=== PATIENT | female | born 2000 | race Caucasian/White ===

== ENCOUNTER 2022-02-02 09:52 | Outpatient (CLI) | payer BC, MEDICAID, SELFPAY ==
[2022-02-02 10:09] LABS: Absolute Lymphocyte Count 2.03 X10^3/uL (0.83-4.51); Absolute Neutrophil Count 6.2 X10^3/uL (2.0-7.7); Basophil# 0.03 X10^3/uL; Basophil% 0.3 % (0-1); Eosinophil# 0.08 X10^3/uL; Eosinophils% 0.9 % (0-5); Hematocrit 38.9 % (37-47); Lymphocyte # 2.03 X10^3/ul (0.83-4.51); Mean Corp Hgb Conc 33.4 g/dL (32-36); Mean Corpuscular Hgb 32.9 pg (27.0-32.0); Mean Corpuscular Volume 98.5 fL (81-99); Mean Platelet Vol. 9.4 fl (6.2-12.0); Monocyte# 0.44 X10^3/uL; NRBC Flagged by Analyzer 0 % (0-5); Neutrophil # 6.19 X10^3/uL (2.7-7.7); Platelet Count 324 K/mm3 (150-450); RBC Distribution Width CV 12.6 % (11.6-14.6); RBC Distribution Width SD 45.9 fl (35.1-43.9); Red Blood Count 3.95 M/mm3 (4.2-5.4); White Blood Count 8.8 K/mm3 (4.4-11.0)
[2022-02-02 10:28] LABS: Glucose Challenge Gest 1H 50g 118 mg/dL (70-140)
== END 2022-02-02 23:59 | disposition home or self-care (01) ==
PROVIDERS: Nurse Practitioner Women's Health; Referring Provider Obstetrics & Gynecology; Visit Provider Obstetrics & Gynecology
DX: Z34.92 Encounter for supervision of normal pregnancy, unspecified, second trimester (principal); Z3A.26 26 weeks gestation of pregnancy
CPT/HCPCS: 36415; 82950; 85025

== ENCOUNTER 2022-03-09 10:00 | Outpatient (CLI) | payer BC, MEDICAID, SELFPAY ==
[2022-03-09 10:12] VITALS: BMI 18.5
[2022-03-09] MEDS: Betamethasone/Betamethasone 30 MG/5 ML Vial 12 MG IM (10:18)
--- NOTE | 2022-03-26 10:10 | OB.TRI.PN ---
Progress Notes Date of Service: 03/09/22 Progress Note: Aniceto Velázquez is a 21 y/o @ Assessment & Plan (1) IUGR (intrauterine growth restriction): COMMENT: pt has twice weekly ultrasounds with MFM. most recent ultrasound from 03/08 is pending with plan. -twice weekly testing and weekly UAD recommended. -celestone ordered 03/09 (2) Uterine size-date discrepancy, third trimester: COMMENT: growth US every 2 wks, 2x wkly BPPS and once wkly UAD. Deliver at 37 wks or sooner if indicated (3) Antepartum cervical shortening: COMMENT: 2.3-2.7 cm on anatomy scan- micronized progesterone 200 mg per vagina HS, lifting and pelvic rest restrictions 12/29 [id number], wkly screenings until 24 wks 01/04 CL nl. (4) Cardiac arrhythmia: COMMENT: in past as a child, never treated, unsure the name, no meds or symptoms. recommend EKG (5) : QUALIFIERS: Weeks of gestation: 34 weeks Qualified Code(s): Z3A.34 - 34 weeks gestation of COMMENT: nipt and carrier declined. JOSÉ ANTONIO [place]. anatomy Deliver 38-39 weeks (6) Supervision of normal : COMMENT: PRR(RPR) OLE 04/28/22 boy ritika Morel
--- NOTE | 2022-03-26 10:12 | OB.TRI.HP_ITS ---
HPI - General HPI Narrative JESICA AVILA, is a 21 F who presents to L&D for celestone injection for IUGR. Maternal Data Information OLE Calculator Estimated Delivery Date Method Current WG Current Estimate 04/28/22 Manual 35w 2d PFSH PFSH Home Medications docosahexaenoic acid 200 mg capsule 2 PO DAILY 11/17/21 [History Last Taken 03/10/22 08:00 2 gummies] progesterone micronized 100 mg vaginal insert 2 insert VAGINAL QHS 30 Days #60 ea 12/08/21 [Rx Last Taken 03/09/22 22:00 2 insert] famotidine 20 mg tablet 20 mg PO DAILY 12/16/21 [History Last Taken 03/10/22 07:00 20 mg] loperamide 2 mg capsule 2 mg PO Q6H PRN 02/24/22 [History Last Taken Unknown] ondansetron 4 mg disintegrating tablet 4 mg PO Q8H PRN 02/24/22 [History Last Taken 03/10/22 07:00 4 mg] docusate sodium 100 mg capsule 100 mg PO DAILY #30 cap 03/09/22 [Rx Last Taken 03/09/22 22:00 100 mg] polyethylene glycol 3350 17 gram/dose oral powder 4 g PO DAILY 30 Days #120 g 03/09/22 [Rx Last Taken 03/09/22 13:00 4 g] sertraline [Zoloft] 20 mg PO DAILY 03/10/22 [History Last Taken 03/10/22 08:00 25 mg] Allergy/AdvReac Type Severity Reaction Status Date / Time No Known Allergies Allergy Verified 03/23/22 11:53 Surgical History S/P eye surgery Social History Smoking Status: Former smoker alcohol intake: never substance use type: does not use caffeine: Yes what type of physical activity do you participate in: yoga and weight training frequency: 5-6 times per week seatbelt use: always do you feel safe at home: Yes additional social history: Fiance-Adriel History 1 Elective abortions Hx Para Spontaneous abortions Hx # Term Pregnancies Ectopic pregnancies Hx # Pregnancies Multiple births # of living children Visit Details Expected Delivery Route/Plan Labor Preferences- CB/BF classes: [] labor support person: [] labor intervention preferences: [] pain management options preferred: [] cut cord/dad catch: [] : [] PP control planned: [] discussed possible routes of delivery and associated risks: [] special requests: [] Plans Covid status: non immune counseled regarding risk of covid in vs vaccination and declined vaccination Flu vaccine: declined Tdap vaccine: given Rhogam: na LARC form signed: declined movement and labor precautions reviewed. Problem list reviewed and updated with the most current plan of care details and appropriate orders placed. Relevant counseling for the gestational age provided. Continue routine care and follow up unless otherwise noted in visit notes/problem list details OB Flowsheet Initial Weight: Not Recorded Date -?-?-?-?-?-?-?-?-?-?-?-?- EGA Weight BP Urine Prot -?-?-?-?-?-?-?-?-?-?-?-?- Glucose FHR FuHt Pres Dilation -?-?-?-?-?-?-?-?-?-?-?-?- Effaced St Visit Note 11/17/21 -?-?-?-?-?-?-?-?-?-?-?-?- 16w 6d 95 lb 120/88 Negative -?-?-?-?-?-?-?-?-?-?-?-?- Negative 145 -?-?-?-?-?-?-?-?-?-?-?-?- SM- JOSÉ ANTONIO isela harris. no vb cramping doing well 12/16/21 -?-?-?-?-?-?-?-?-?-?-?-?- 21w 0d 96 lb 122/84 Negative -?-?-?-?-?-?-?-?-?-?-?-?- Negative 140 -?-?-?-?-?-?-?-?-?-?-?-?- SM- no vb lof go od fm SM- no vb lof good fm discus sed shortened CL recommend repeat us next week 01/21/22 -?-?-?-?-?-?-?-?-?-?-?-?- 26w 1d 99 lb 4 oz 112/64 -?-?-?--?-?-?-?-?-?-?-?-?- 145 25 -?-?-?-?-?-?-?-?-?-?-?-?- SM- no vb lof go od fm no regular ctx CL stable on progesterone 02/10/22 -?-?-?-?-?-?-?-?-?-?-?-?- 29w 0d 103 lb 8 oz 124/70 Nega tive -?-?-?-?-?-?-?-?-?-?-?-?- Negative 165 27 -?-?-?-?-?-?-?-?-?-?-?-?- JV- stable Short ened cervix. pt was at [facility] and states was put on 5 different medications to help with hyperemesis episode. She will bring in list next visit 02/24/22 -?-?-?-?-?-?-?-?-?-?-?-?- 31w 0d 101 lb 6 oz 108/72 Nega tive -?-?-?-?-?-?-?-?-?-?-?-?- Negative 145 28 -?-?-?-?-?-?-?-?-?-?-?-?- SM- tdap booster today, larc signed no vb lof good fm no regular ctx. 03/09/22 -?-?-?-?-?-?-?-?-?-?-?-?- 32w 6d 103 lb 114/72 Negative -?-?-?-?-?-?-?-?-?-?-?-?- Negative 130 28 -?-?-?-?-?-?-?-?--?-?-?-?- JV- nst reactive . celestone ordered for IUGR. pt is supposed to be getting twice weekly testing and once weekly UAD. waiting on report from [facility]. in meantime will give celestone 03/09/22 -?-?-?-?-?-?-?-?-?-?-?-?- 32w 6d 101 lb 6.602 oz -?-?-?-?-?-?-?-?-?-?-?-?- -?-?-?-?-?-?-?-?-?-?-?-?- 03/23/22 -?-?-?-?-?-?-?-?-?-?-?-?- 34w 6d 101 lb 4 oz 110/68 Nega tive -?-?-?-?-?-?-?-?-?-?-?-?- Negative 140 30 -?-?-?-?-?-?-?-?-?-?-?-?- JV- plan for gricel corderoy UAD, q 2 week growths, and twice weekly nsts. NST today reactive. Assessment & Plan (1) IUGR (intrauterine growth restriction): COMMENT: pt has twice weekly ultrasounds with MFM. most recent ultrasound from 03/08 is pending with plan. -twice weekly testing and weekly UAD recommended. -celestone ordered 03/09 (2) Uterine size-date discrepancy, third trimester: COMMENT: growth US every 2 wks, 2x wkly BPPS and once wkly UAD. Deliver at 37 wks or sooner if indicated (3) Antepartum cervical shortening: COMMENT: 2.3-2.7 cm on anatomy scan- micronized progesterone 200 mg per vagina HS, lifting and pelvic rest restrictions 12/29 [id number], wkly screenings until 24 wks 01/04 CL nl. (4) Cardiac arrhythmia: COMMENT: in past as a child, never treated, unsure the name, no meds or symptoms. recommend EKG (5) : QUALIFIERS: Weeks of gestation: 34 weeks Qualified Code(s): Z3A.34 - 34 weeks gestation of COMMENT: nipt and carrier declined. JOSÉ ANTONIO [place]. anatomy Deliver 38- 39 weeks (6) Supervision of normal : COMMENT: PRR(RPR) OLE 04/28/22 boy ritika Adriel PLAN: celestone injection today and tomorrow.
== END 2022-03-09 10:22 | disposition home or self-care (01) ==
LOC: WPOUT 10:02 → WP 10:03
PROVIDERS: Referring Provider Obstetrics & Gynecology; Visit Provider Obstetrics & Gynecology
DX: O36.5930 Maternal care for other known or suspected poor fetal growth, third trimester, not applicable or unspecified (principal); Z00.00 Encounter for general adult medical examination without abnormal findings; O26.843 Uterine size-date discrepancy, third trimester; O26.873 Cervical shortening, third trimester; Z3A.34 34 weeks gestation of pregnancy; Z87.891 Personal history of nicotine dependence
CPT/HCPCS: 96372; 99218; G0378; J0702

== ENCOUNTER 2022-03-10 10:45 | Outpatient (CLI) | payer BC, MEDICAID, SELFPAY ==
[2022-03-10 10:50] VITALS: BMI 18.6
[2022-03-10] MEDS: Betamethasone/Betamethasone 30 MG/5 ML Vial 12 MG IM (11:31)
--- NOTE | 2022-03-26 10:14 | OB.TRI.PN_ITS ---
Progress Notes Date of Service: 03/10/22 Progress Note: pt presents today for repeat celestone injection due to IUGR. Her first dose was yesterday Assessment & Plan (1) IUGR (intrauterine growth restriction): COMMENT: pt has twice weekly ultrasounds with MFM. most recent ultrasound from 03/08 is pending with plan. -twice weekly testing and weekly UAD recommended. -celestone ordered 03/09 (2) Uterine size-date discrepancy, third trimester: COMMENT: growth US every 2 wks, 2x wkly BPPS and once wkly UAD. Deliver at 37 wks or sooner if indicated (3) Antepartum cervical shortening: COMMENT: 2.3-2.7 cm on anatomy scan- micronized progesterone 200 mg per vagina HS, lifting and pelvic rest restrictions 12/29 [id number], wkly screenings until 24 wks 01/04 CL nl. (4) Cardiac arrhythmia: COMMENT: in past as a child, never treated, unsure the name, no meds or symptoms. recommend EKG (5) : QUALIFIERS: Weeks of gestation: 34 weeks Qualified Code(s): Z3A.34 - 34 weeks gestation of COMMENT: nipt and carrier declined. JOSÉ ANTONIO [place]. nl anatomy Deliver 38- 39 weeks (6) Supervision of normal : COMMENT: PRR(RPR) OLE 04/28/22 osmany Morel PLAN: 2nd celestone injection today. keep office vitis and plan for monitoring
== END 2022-03-10 11:34 | disposition home or self-care (01) ==
LOC: WPOUT 10:46 → WP 10:47
PROVIDERS: Visit Provider Obstetrics & Gynecology
DX: O36.5930 Maternal care for other known or suspected poor fetal growth, third trimester, not applicable or unspecified (principal); O99.413 Diseases of the circulatory system complicating pregnancy, third trimester; O26.843 Uterine size-date discrepancy, third trimester; O26.873 Cervical shortening, third trimester; I49.9 Cardiac arrhythmia, unspecified; Z3A.34 34 weeks gestation of pregnancy
CPT/HCPCS: 96372; 99218; G0378; J0702

== ENCOUNTER → 2022-03-30 | Outpatient (CLI) | payer BC, MEDICAID, SELFPAY | END | disposition home or self-care (01) | LOC: LABSPEC 04-08 05:06 | PROVIDERS: Visit Provider Obstetrics & Gynecology | DX: Z34.90 Encounter for supervision of normal pregnancy, unspecified, unspecified trimester (principal) | CPT/HCPCS: 87081 ==

== ENCOUNTER 2022-04-07 07:05 | Inpatient (IN) | payer BC, MEDICAID, SELFPAY ==
[2022-04-07] VITALS (32 sets, daily range): BP systolic 121–150; BP diastolic 67–90; PULSE 74–116; RESP 16; TEMP 36.6–37.6; O2SAT 99–100; BMI 18.4
[2022-04-07] MEDS: Lactated Ringers 1,000 ML 50 ML IV (07:35)
[2022-04-07 07:51] LABS: Absolute Lymphocyte Count 2.66 X10^3/uL (0.83-4.51); Basophil# 0.02 X10^3/uL; Basophil% 0.2 % (0-1); Eosinophil# 0.05 X10^3/uL; Eosinophils% 0.6 % (0-5); Hematocrit 33.9 % (37-47); Hemoglobin 11.4 g/dL (12.0-15.0); Lymphocyte # 2.66 X10^3/ul (0.83-4.51); Lymphocyte % 31.8 % (19-41); Mean Corp Hgb Conc 33.6 g/dL (32-36); Mean Corpuscular Hgb 31.7 pg (27.0-32.0); Mean Corpuscular Volume 94.2 fL (81-99); Monocyte# 0.58 X10^3/uL; Monocyte% 6.9 % (0-10); NRBC Flagged by Analyzer 0 % (0-5); Neutrophil % 59.9 % (47-70); Platelet Count 382 K/mm3 (150-450); RBC Distribution Width CV 13.1 % (11.6-14.6); RBC Distribution Width SD 44.7 fl (35.1-43.9); White Blood Count 8.4 K/mm3 (4.4-11.0)
[2022-04-07] MEDS: 0.9% Normal Saline Single 100 ML IV.SOLN. INTRA-UTER (08:25)
[2022-04-07] MEDS: Oxytocin 30 units/NS 500 ml 30 UNITS/500 ML IV.SOLN IV (09:14)
[2022-04-07] MEDS: Lactated Ringers 500 ML 999 ML IV (11:50)
[2022-04-07] MEDS: fentaNYL-bupivacaine (epidural) 100 ML BAG EPIDURAL (12:50)
--- NOTE | 2022-04-07 12:51 | HP.PCM.OB_ITS ---
HPI - General General Date of Admission: 04/07/22 HPI Narrative JESICA AVILA, is a 21 F who presentsfor IOL secondary to IUGR no vb lof good fm no regular ctx Maternal Data Information OLE Calculator Estimated Delivery Date Method Current WG Current Estimate 04/28/22 Manual 37w 0d PFSH PFSH Home Medications docosahexaenoic acid 200 mg capsule 2 mg PO DAILY 11/17/21 [History Last Taken 04/06/22] famotidine 20 mg tablet 20 mg PO DAILY 12/16/21 [History Last Taken 04/06/22] loperamide 2 mg capsule 2 mg PO Q6H PRN 02/24/22 [History Last Taken 2 Weeks Ago ~03/24/22] ondansetron 4 mg disintegrating tablet 4 mg PO Q8H PRN 02/24/22 [History Last Taken 2 Weeks Ago ~03/24/22] sertraline [Zoloft] 25 mg PO DAILY 03/10/22 [History Last Taken 04/07/22] docusate sodium [Colace] 100 mg PO DAILY 04/07/22 [History Last Taken 2 Weeks Ago ~03/24/22] polyethylene glycol 3350 [Miralax] 4 g PO DAILY 04/07/22 [History Last Taken Unknown] progesterone micronized 2 insert VAGINAL QHS 04/07/22 [History Last Taken 2 Weeks Ago ~03/24/22] Allergy/AdvReac Type Severity Reaction Status Date / Time No Known Allergies Allergy Verified 03/30/22 11:06 Surgical History S/P eye surgery Social History Smoking Status: Former smoker alcohol intake: never substance use type: does not use caffeine: Yes what type of physical activity do you participate in: yoga and weight training frequency: 5-6 times per week seatbelt use: always do you feel safe at home: Yes additional social history: Angelique History 1 Elective abortions Hx Para 0 Spontaneous abortions Hx # Term Pregnancies Ectopic pregnancies Hx # Pregnancies Multiple births # of living children Visit Details Expected Delivery Route/Plan Labor Preferences- CB/BF classes: [] labor support person: [] labor intervention preferences: [] pain management options preferred: [] cut cord/dad catch: [] : [] PP control planned: [] discussed possible routes of delivery and associated risks: [] special requests: [] Plans Covid status: non immune counseled regarding risk of covid in vs vaccination and declined vaccination Flu vaccine: declined Tdap vaccine: given Rhogam: na LARC form signed: declined movement and labor precautions reviewed. Problem list reviewed and updated with the most current plan of care details and appropriate orders placed. Relevant counseling for the gestational age provided. Continue routine care and follow up unless otherwise noted in visit notes/problem list details OB Flowsheet Initial Weight: Not Recorded Date -?-?-?-?-?-?-?-?-?-?-?-?- EGA Weight BP Urine Prot -?-?-?-?-?-?-?-?-?-?-?-?- Glucose FHR FuHt Pres Dilation -?-?-?-?-?-?-?-?-?-?-?-?- Effaced St Visit Note 11/17/21 -?-?-?-?-?-?-?-?-?-?-?-?- 16w 6d 95 lb 120/88 Negative -?-?-?-?-?-?-?-?-?-?-?-?- Negative 145 -?-?-?-?-?-?-?-?-?-?-?-?- SM- JOSÉ ANTONIO isela d. no vb cramping doing well 12/16/21 -?-?-?-?-?-?-?-?-?-?-?-?- 21w 0d 96 lb 122/84 Negative -?-?-?-?-?-?-?-?-?-?-?-?- Negative 140 -?-?-?-?-?-?-?-?-?-?-?-?- SM- no vb lof go od fm SM- no vb lof good fm discus sed shortened CL recommend repeat us next week 01/21/22 -?-?-?-?-?-?-?-?-?-?-?-?- 26w 1d 99 lb 4 oz 112/64 -?-?--?-?-?-?-?-?-?-?-?-?- 145 25 -?-?-?-?-?-?-?-?-?-?-?-?- SM- no vb lof go od fm no regular ctx CL stable on progesterone 02/10/22 -?-?-?-?-?-?-?-?-?-?-?-?- 29w 0d 103 lb 8 oz 124/70 Nega tive -?-?-?-?-?-?-?-?-?-?-?-?- Negative 165 27 -?-?-?-?-?-?-?-?-?-?-?-?- JV- stable Short ened cervix. pt was at [facility] and states was put on 5 different medications to help with hyperemesis episode. She will bring in list next visit 02/24/22 -?-?-?-?-?-?-?-?-?-?-?-?- 31w 0d 101 lb 6 oz 108/72 Nega tive -?-?-?-?-?-?-?-?-?-?-?-?- Negative 145 28 -?-?-?-?-?-?-?-?-?-?-?-?- SM- tdap booster today, larc signed no vb lof good fm no regular ctx. 03/09/22 -?-?-?-?-?-?-?-?-?-?-?-?- 32w 6d 103 lb 114/72 Negative -?-?-?-?-?-?-?-?-?-?-?-?- Negative 130 28 -?-?-?-?-?-?-?--?-?-?-?-?- JV- nst reactive . celestone ordered for IUGR. pt is supposed to be getting twice weekly testing and once weekly UAD. waiting on report from [facility]. in meantime will give celestone 03/09/22 -?-?-?-?-?-?-?-?-?-?-?-?- 32w 6d 101 lb 6.602 oz -?-?-?-?-?-?-?-?-?-?-?-?- -?-?-?-?-?-?-?-?-?-?-?-?- 03/23/22 -?-?-?-?-?-?-?-?-?-?-?-?- 34w 6d 101 lb 4 oz 110/68 Nega tive -?-?-?-?-?-?-?-?-?-?-?-?- Negative 140 30 -?-?-?-?-?-?-?-?-?-?-?-?- JV- plan for gricel kly UAD, q 2 week growths, and twice weekly nsts. NST today reactive. 03/30/22 -?-?-?-?-?-?-?-?-?-?-?-?- 35w 6d 102 lb 4 oz 130/82 Nega tive -?--?-?-?-?-?-?-?-?-?-?-?- Negative 155 29 Cephalic 1 -?-?-?-?-?-?-?-?-?-?-?-?- 70 -2 JV- BPP ye sterday was 06/13 and growth showed slight interval growth now 1st%. IOL set up at 37 weeks ( am) cx is very soft and anterior. good candidate for pit and possiblly ed. paula score 8 04/07/22 -?-?-?-?-?-?-?-?-?-?-?-?- 37w 0d 101 lb 131/78 125/75 132/77 135/86 150/75 149/78 131/75 132/81 136/74 132/72 130/74 -?-?-?-?-?-?-?-?-?-?-?-?- -?-?-?-?-?-?-?-?-?-?-?-?- NST FHR Rate Baby A Baseline: 130 Variability:: Moderate Accelerations:: 15 x 15 Decelerations:: None NST Reactive:: Yes FHR Category:: Category I Uterine Activity:: irregular ROS Constitutional Constitutional: Reports systems reviewed and no addt'l complaints, except as documented Eyes Eyes: Denies change in vision ENT HEENT: Reports systems reviewed and no addt'l complaints, except as documented; Denies headache(s) Cardiovascular Cardiovascular: Reports systems reviewed and no addt'l complaints, except as documented; Denies chest pain or dyspnea Respiratory/Chest Respiratory/Chest: Reports systems reviewed and no addt'l complaints, except as documented Gastrointestinal Gastrointestinal: Reports systems reviewed and no addt'l complaints, except as documented; Denies abdominal pain Genitourinary Genitourinary: Reports systems reviewed and no addt'l complaints, except as documented, contractions Details: present (irregular) and movement Details: present; Denies dysuria or genital lesions Musculoskeletal Musculoskeletal: Reports systems reviewed and no addt'l complaints, except as documented Neurologic Neurologic: Reports systems reviewed and no addt'l complaints, except as documented Endocrine Endocrinology: Reports systems reviewed and no addt'l complaints, except as documented Vital Signs Vital Signs Vital Signs: 04/07/22 07:46 04/07/22 07:47 04/07/22 09:18 Temperature 98.8 F 98.4 F Pulse Rate 84 Blood Pressure 131/78 H BP Systolic 131 BP Diastolic 78 Pulse Ox 100 04/07/22 09:19 04/07/22 10:53 04/07/22 11:59 Temperature Pulse Rate 80 83 77 Blood Pressure 125/75 H 132/77 H 135/86 H BP Systolic 125 132 135 BP Diastolic 75 77 86 Pulse Ox 04/07/22 12:26 04/07/22 12:31 04/07/22 12:36 Temperature Pulse Rate 93 100 96 Blood Pressure 150/75 H 149/78 H 131/75 H BP Systolic 150 149 131 BP Diastolic 75 78 75 Pulse Ox 04/07/22 12:39 04/07/22 12:41 04/07/22 12:46 Temperature Pulse Rate 91 81 89 Blood Pressure 132/81 H 136/74 H 132/72 H BP Systolic 132 136 132 BP Diastolic 81 74 72 Pulse Ox 100 04/07/22 12:51 Temperature Pulse Rate 88 Blood Pressure 130/74 H BP Systolic 130 BP Diastolic 74 Pulse Ox Weight Weight: 101 lb Body Mass Index (BMI) 18.4 Physical Exam Const alert, oriented x3, no apparent distress and healthy appearing HEENT normocephalic and moist oral mucous membranes Head and Scalp: atraumatic Neck full ROM, no lymphadenopathy, supple and thyroid normal General: trachea midline Lymph Lymphatic: no lymphadenopathy noted Chest inspection of chest normal Resp normal respiratory effort Cardio regular rate GI normal to inspection, nondistended, normoactive bowel sounds, soft to palpation and non-tender Inspection: gravid external exam normal Manual OB Exam: estimated gestational size appropriate, presentation cephalic, dilated, effaced and station Extremity normal to inspection General Extremity: Negative for edema Skin no rashes or lesions noted Neuro no focal motor deficits and deep tendon reflexes 2+ bilaterally Motor Exam: strength 5/5 throughout and clonus absent Psych mental status grossly normal Labs Labs Labs: Blood Type A POSITIVE Antibody Screen NEGATIVE Hct 33.9 % (37-47) L Hgb 11.4 g/dL (12.0-15.0) L Pap Smear Positive Hep Bs Antigen Pending Glucose 1 Hr 50 gm 118 mg/dL (70-140) Assessment & Plan (1) Supervision of normal : COMMENT: PRR(RPR) OLE 04/28/22 boy ritika Morel (2) : QUALIFIERS: Weeks of gestation: 34 weeks Qualified Code(s): Z3A.34 - 34 weeks gestation of COMMENT: nipt and carrier declined. JOSÉ ANTONIO [place]. nl anatomy Deliver 38- 39 weeks. GBS Neg (3) Cardiac arrhythmia: COMMENT: in past as a child, never treated, unsure the name, no meds or symptoms. recommend EKG (4) Antepartum cervical shortening: COMMENT: 2.3-2.7 cm on anatomy scan- micronized progesterone 200 mg per vagina HS, lifting and pelvic rest restrictions 12/29 [id number].mm, wkly screenings until 24 wks 01/04 CL nl. (5) Uterine size-date discrepancy, third trimester: COMMENT: growth US every 2 wks, 2x wkly BPPS and once wkly UAD. Deliver at 37 wks or sooner if indicated (6) IUGR (intrauterine growth restriction): COMMENT: pt has twice weekly ultrasounds with MFM. most recent ultrasound from 03/08 is pending with plan. -twice weekly testing and weekly UAD recommended. -celestone ordered 03/09 PLAN: Patient presents IOL, plan management for with pitocin/AROM. fb Pain management: plans epidural. GBS negative. Management of any complications: iugr I have reviewed the [facility] and made any clinically relevant updates.
[2022-04-07 13:31] LABS: Hepatitis B Surface Antigen Non-Reactive (Nonreactive); Hepatitis C Antibody Non-Reactive (Nonreactive)
[2022-04-07] MEDS: Lactated Ringers 1,000 ML 200 ML IV (13:55)
--- NOTE | 2022-04-07 17:22 | EX.PCM.OBRPT ---
Assessment & Plan (1) IUGR (intrauterine growth restriction): COMMENT: pt has twice weekly ultrasounds with MFM. most recent ultrasound from 03/08 is pending with plan. -twice weekly testing and weekly UAD recommended. -celestone ordered 03/09 (2) Antepartum cervical shortening: COMMENT: 2.3-2.7 cm on anatomy scan- micronized progesterone 200 mg per vagina HS, lifting and pelvic rest restrictions 12/29 .mm, wkly screenings until 24 wks 01/04 CL nl. (3) Cardiac arrhythmia: COMMENT: in past as a child, never treated, unsure the name, no meds or symptoms. recommend EKG (4) : QUALIFIERS: Weeks of gestation: 34 weeks Qualified Code(s): Z3A.34 - 34 weeks gestation of COMMENT: nipt and carrier declined. JOSÉ ANTONIO [place]. nl anatomy Deliver 38-39 weeks. GBS Neg (5) Supervision of normal : COMMENT: PRR(RPR) OLE 04/28/22 boy ritika Morel (6) Vaginal delivery: COMMENT: IOL IUGR SM 37 Maternal Data Information OLE Calculator Estimated Delivery Date Method Current WG Current Estimate 04/28/22 Manual 37w 0d Vaginal Delivery Operative Information Date of Procedure: 04/07/22 Pre-Operative Diagnosis: IOL IUGR Post-Operative Diagnosis: same Surgery / Procedure Performed: Spontaneous Vaginal Delivery Type of Anesthesia: Epidural Special Medications: none Estimated Blood Loss: 100 Fluids Replaced: crystalloid Findings Description of Procedure: Patient began pushing and delivered the head in the NADIYA presentation. The head was delivered atraumatically and a loose nuchal cord ?1 was identified and the delivered through without complication. The anterior and posterior shoulders delivered without complication followed by the rest of the infant and the was placed on the maternal abdomen. Delayed cord clamping was employed for approximately 60 seconds. Cord was clamped and cut and gentle traction was applied to the cord and the placenta delivered spontaneously immediately following it was noted to be intact with three-vessel cord. The perineum and vagina were inspected and noted to have no laceration. EBL was 100 cc. Patient and infant tolerated delivery well. Presentation: NADIYA Amniotic Membrane Rupture Type: Artificial Amniotic Fluid Description: Clear Placental Delivery Description: Spontaneous Placenta Disposition: [facility] Cord Vessel Description: 3 Vessels Cord Entanglement: Around neck x 1, loose Delayed Cord Clamping: Yes Post Vaginal Delivery Medications Given After Delivery: IV Pitocin Episiotomy Description: None Laceration: None Complication Complications: None Procedures Urinary/Genital [id number]: [id number] Vaginal Delivery [facility]
--- NOTE | 2022-04-07 17:23 | PCM.DC ---
Discharge Instructions Diet Discharge Diet: No restrictions Activity Discharge Activity: Return to Normal Activity, May Not Drive (while taking narcotic pain medications.) and May Shower May resume sexual activity in: 4-6 weeks Dressing / Incision Call your doctor if your incision/area has: Continuous Slow Oozing, Sudden Increased Bleeding, Increased Pain/ Swelling, Increased Redness and Foul Smelling Discharge Follow Up Care Please Follow Up With: Jess Arboleda MD When: Call [phone] to make an appointment with your doctor in 6 weeks. If you had elevated blood pressure or 4th degree laceration, you will need to be seen in 2 weeks. Test Results: Test results from this visit will be discussed in further detail at your follow-up appointment, if applicable. Discharge Plan Admission Admit Date/Time: 04/07/22 07:05 Attending Provider: Risa Leon Primary Care Provider: Panda PhysicianSalud Primary Discharge Orders/Prescriptions Prescriptions: No Action DHA 200 mg capsule 2 mg PO DAILY RF: 0 famotidine [Pepcid] 20 mg tablet 20 mg PO DAILY RF: 0 loperamide [Anti-Diarrheal (loperamide)] 2 mg capsule 2 mg PO Q6H PRN (Reason: Diarrhea) RF: 0 ondansetron 4 mg tablet,disintegrating 4 mg PO Q8H PRN (Reason: Nausea) RF: 0 sertraline [Zoloft] 20 mg/mL Concentrate 25 mg PO DAILY RF: 0 docusate sodium [Colace] 100 mg capsule 100 mg PO DAILY RF: 0 polyethylene glycol 3350 [Miralax] 17 gram/dose powder 4 g PO DAILY RF: 0 progesterone micronized 100 mg insert 2 insert vaginal QHS RF: 0 Referrals / Follow Up: Care Physician,No Primary [Primary Care Provider] - Disposition Disposition (needs filled in before D/C Order can be placed): Home, Self Care
[2022-04-07] MEDS: Oxytocin 30 units/NS 500 ml 30 UNITS/500 ML IV.SOLN 334 UNITS IV (18:34)
[2022-04-07] MEDS: 0.9% Saline Lock 10 ML Syringe IV (21:57)
[2022-04-07] MEDS: Acetaminophen 500 MG Tablet 1000 MG PO (23:48)
[2022-04-08 04:25] VITALS: BP 111/77; PULSE 90; RESP 18; TEMP 36.9; O2SAT 100
--- NOTE | 2022-04-08 04:51 | PN.OBGYN_ITS ---
Subjective Subjective Patient doing well without complaints. Tolerating PO. Ambulating and voiding without difficulty. feeding well. Denies chest pain, shortness of breath, calf pain/swelling, fevers, chills, lightheadedness. Objective Data Objective Data Vital Signs: Vital Signs Temp Pulse Resp BP Pulse Ox 98.4 F 90 18 111/77 100 04/08/22 04:25 04/08/22 04:25 04/08/22 04:25 04/08/22 04:25 04/08/22 04:25 Oxygen Delivery Method Room Air Weight: 101 lb Body Mass Index (BMI) 18.4 Intake & Output: Intake and Output for Last 24 Hours 04/06/22 04/07/22 04/08/22 23:59 23:59 23:59 Intake Total 2840.97 / 2840.97 Output Total 150 / 150 Balance 2840.97 / 2840.97 -150 / -150 Lab / Micro Data Result Diagrams: 04/07/22 07:35 Labs: Laboratory Results - last 24 hr 04/07/22 07:35: WBC 8.4, RBC 3.60 L, Hgb 11.4 L, Hct 33.9 L, MCV 94.2, MCH 31.7, MCHC 33.6, RDW Std Deviation 44.7 H, RDW Coeff of Mitali 13.1, Plt Count 382, MPV 9.0, Immature Gran % (Auto) 0.600, Neut % (Auto) 59.9, Lymph % (Auto) 31.8, [place] % (Auto) 6.9, Eos % (Auto) 0.6, Baso % (Auto) 0.2, Absolute Neuts (auto) 5.0, Absolute Lymphs (auto) 2.66, Nucleated RBC % 0 04/07/22 07:35: Blood Type A POSITIVE, Antibody Screen NEGATIVE 04/07/22 10:55: Hep Bs Antigen Non-Reactive, Hepatitis C Antibody Non-Reactive Micro: Microbiology 04/07/22 07:40 Nasal Secretion SARS-CoV-2 Antigen (Rapid) - Final ROS Constitutional Constitutional: Reports systems reviewed and no addt'l complaints, except as documented Cardiovascular Cardiovascular: Reports systems reviewed and no addt'l complaints, except as do cumented Respiratory/Chest Respiratory/Chest: Reports systems reviewed and no addt'l complaints, except as documented Gastrointestinal Gastrointestinal: Reports systems reviewed and no addt'l complaints, except as documented Physical Exam Const alert, oriented x3 and no apparent distress HEENT Head and Scalp: atraumatic Resp normal respiratory effort GI soft to palpation and non-tender Bimanual Exam - Vag & Uterus: uterus non-tender Uterus Palpation: uterus fundus firm (below Umbilicus) Assessment & Plan (1) Vaginal delivery: COMMENT: IOL IUGR SM 37 PLAN: s/p PPD # 1 1. routine post delivery care 2. breast feeding- support given 3. rh positive 4. rubella immune
[2022-04-08 08:15] VITALS: BP 120/77; PULSE 75; RESP 16; TEMP 37.1; O2SAT 99
[2022-04-08] MEDS: Sertraline 50 MG Tablet 25 MG PO (10:11)
[2022-04-08 11:41] VITALS: BP 117/84; PULSE 93; RESP 16; TEMP 36.6; O2SAT 97
[2022-04-08] MEDS: Naproxen 500 MG Tablet PO (11:43)
[2022-04-08 16:23] VITALS: BP 123/81; PULSE 65; RESP 16; TEMP 37.1; O2SAT 98
[2022-04-08 20:00] VITALS: BP 121/77; PULSE 77; RESP 18; TEMP 37.1; O2SAT 98
[2022-04-09 03:05] VITALS: BP 126/83; PULSE 79; RESP 16; TEMP 36.7; O2SAT 99
[2022-04-09 08:35] VITALS: BP 122/74; PULSE 66; RESP 16; TEMP 37.1
--- NOTE | 2022-04-09 09:50 | PCM.PN.OB ---
Subjective Subjective Patient doing well without complaints. Tolerating PO. Ambulating and voiding without difficulty. Feeding well. Denies chest pain, shortness of breath, calf pain/swelling, fevers, chills, lightheadedness. Objective Data Objective Data Vital Signs: Vital Signs Temp Pulse Resp BP Pulse Ox 98.7 F 66 16 122/74 H 99 04/09/22 08:35 04/09/22 08:35 04/09/22 08:35 04/09/22 08:35 04/09/22 03:05 Oxygen Delivery Method Room Air Weight: 101 lb Body Mass Index (BMI) 18.4 Intake & Output: Intake and Output for Last 24 Hours 04/07/22 04/08/22 04/09/22 23:59 23:59 23:59 Intake Total 2840.97 / 2840.97 Output Total 400 / 400 Balance 2840.97 / 2840.97 -400 / -400 Lab / Micro Data Result Diagrams: 04/07/22 07:35 Micro: Microbiology 04/07/22 07:40 Nasal Secretion SARS-CoV-2 Antigen (Rapid) - Final ROS Constitutional Constitutional: Denies chills, fatigue, fever(s), poor appetite or weakness Eyes Eyes: Denies blurry vision, change in vision, seeing flashes or spots in vision ENT HEENT: Denies dizziness, headache(s), loss taste/smell or sore throat Cardiovascular Cardiovascular: Denies chest pain, dizziness, dyspnea, irregular heart rhythm, palpitations or rapid heart rate Respiratory/Chest Respiratory/Chest: Denies chest tightness, cough, dyspnea or breast pain Gastrointestinal Gastrointestinal: Denies abdominal pain, constipation or vomiting Genitourinary Genitourinary: Denies dysuria or flank pain Musculoskeletal Musculoskeletal: Denies difficulty walking, joint pain, limited range of motion or numbness Neurologic Neurologic: Denies abnormal movements, abnormal speech, dizziness, numbness, seizure-like activity or syncope Psychiatric Psychiatric: Denies anxiety, behavioral changes, change in appetite, confusion, depression or suicidal thoughts Physical Exam Const alert, oriented x3 and no apparent distress General Appearance: cooperative and comfortable Resp normal respiratory effort Cardio regular rate GI normal to inspection, nondistended, normoactive bowel sounds GI Narrative: uterus is firm below umbilicus Palpation: soft Bimanual Exam - Adnexa, Other: Negative for cul-de-sac fullness Back/Spine no CVA tenderness and thoraco-lumbar ROM normal Extremity normal to inspection, no clubbing, cyanosis or edema, no calf tenderness and no pedal edema Psych mental status grossly normal, thought process normal, cooperative, affect normal, speech normal, activity/motor behavior normal, denies homicidal ideation and denies suicidal ideation Assessment & Plan (1) Vaginal delivery: COMMENT: IOL IUGR SM 37 PLAN: s/p PPD # 1 1. routine post delivery care 2. breast feeding- support given 3. rh positive 4. rubella immune 5. pt wants to go home today
[2022-04-09] MEDS: Sertraline 50 MG Tablet 25 MG PO (10:38)
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
== END 2022-04-09 12:20 | disposition home or self-care (01) | DRG 806 ==
PROVIDERS: Obstetrics & Gynecology; Admitting Provider Obstetrics & Gynecology; Referring Provider Obstetrics & Gynecology; Visit Provider Obstetrics & Gynecology
DX: O36.5930 Maternal care for other known or suspected poor fetal growth, third trimester, not applicable or unspecified (principal); Z37.0 Single live birth; O26.873 Cervical shortening, third trimester; Z3A.37 37 weeks gestation of pregnancy; O69.81X0 Labor and delivery complicated by cord around neck, without compression, not applicable or unspecified; O26.843 Uterine size-date discrepancy, third trimester; Z87.891 Personal history of nicotine dependence
CPT/HCPCS: 59025; 59050; 85025; 86803; 86850; 86900; 86901; 87340; 87426; 99218; J7120; A4216; G0378

== ENCOUNTER → 2022-05-20 | Outpatient (CLI) | payer BC, MEDICAID, SELFPAY ==
[2022-05-24 14:04] LABS: HPV Reflexed? NOT INDICATED
== END | disposition home or self-care (01) ==
PROVIDERS: Visit Provider Obstetrics & Gynecology
DX: Z12.4 Encounter for screening for malignant neoplasm of cervix (principal)
CPT/HCPCS: 88175; G0145

== ENCOUNTER → 2024-11-22 | Outpatient (CLI) | payer MEDICAID, SELFPAY ==
[2024-11-22 10:08] LABS: Absolute Lymphocyte Count 2.89 X10^3/uL (0.83-4.51); Basophil# 0.02 X10^3/uL; Basophil% 0.2 % (0-1); Eosinophil# 0.06 X10^3/uL; Eosinophils% 0.6 % (0-5); Hematocrit 39.7 % (37-47); Hemoglobin 13.3 g/dL (12.0-15.0); Lymphocyte # 2.89 X10^3/ul (0.83-4.51); Lymphocyte % 27.8 % (19-41); Mean Corp Hgb Conc 33.5 g/dL (32-36); Mean Corpuscular Hgb 32.9 pg (27.0-32.0); Mean Corpuscular Volume 98.3 fL (81-99); Mean Platelet Vol. 9.5 fl (6.2-12.0); Monocyte# 0.37 X10^3/uL; Monocyte% 3.6 % (0-10); NRBC Flagged by Analyzer 0 % (0-5); Neutrophil # 7.01 X10^3/uL (2.7-7.7); Neutrophil % 67.2 % (47-70); Platelet Count 327 K/mm3 (150-450); RBC Distribution Width CV 12.5 % (11.6-14.6); Red Blood Count 4.04 M/mm3 (4.2-5.4); White Blood Count 10.4 K/mm3 (4.4-11.0)
[2024-11-22 10:27] LABS: AST(SGOT) 9 U/L (15-37); Alanine Aminotransfer ALT/SGPT 15 U/L (13-56); Albumin, Serum 3.7 g/dL (3.2-5.0); Alkaline Phosphatase 67 U/L (45-117); Anion Gap 8 (5-15); BUN 6 mg/dL (7-18); BUN/Creat Ratio 8.2 RATIO (10-20); Calcium,Total 9.2 mg/dL (8.5-10.1); Chloride 106 mmol/L (98-107); Creatinine, Serum 0.73 mg/dL (0.55-1.02); EST Glomerular Filtration Rate 103 mL/min (>60); Est Glom Filt Rate - Afr Amer 125 mL/min (>60); Globulin 3.7 g/dL (2.2-4.2); Glucose 77 mg/dL (74-106); Potassium 3.2 mmol/L (3.5-5.1); Protein, Total 7.4 g/dL (6.4-8.2); Sodium Level 139 mmol/L (136-145)
[2024-11-22 10:55] LABS: HIV - WCH Non-Reactive (Nonreactive); Hepatitis B Surface Antigen Non-Reactive (Nonreactive); Hepatitis C Antibody Non-Reactive (Nonreactive); Rubella IgG Reactive (Nonreactive); Syphilis Antibodies Non-reactive; Vitamin B12 430 pg/mL (211-911)
[2024-11-22 12:59] LABS: Amphetamine Urine NEGATIVE (<1000 ng/mL); Barbiturate Urine VISTA NEGATIVE (< 200 ng/mL); Benzodiazepine Urine VISTA NEGATIVE (< 200 ng/mL); Cocaine Urine VISTA NEGATIVE (< 300 ng/mL); Ecstacy Urine VISTA NEGATIVE (< 500 ng/mL); Methadone Urine VISTA NEGATIVE (< 300 ng/mL); PCP Urine VISTA NEGATIVE (< 25 ng/mL); THC Urine VISTA POSITIVE (< 50 ng/mL); Vista UDS pH Range 7
== END | disposition home or self-care (01) ==
LOC: BWCLAB 09:16
PROVIDERS: Referring Provider Obstetrics & Gynecology; Visit Provider Obstetrics & Gynecology
DX: O99.321 Drug use complicating pregnancy, first trimester (principal); F12.90 Cannabis use, unspecified, uncomplicated; Z3A.00 Weeks of gestation of pregnancy not specified
CPT/HCPCS: 36415; 80053; 80307; 82607; 84425; 84443; 85025; 86703; 86762; 86780; 86803; 86850; 86900; 86901; 87086; 87088; 87340

== ENCOUNTER → 2025-02-05 | Outpatient (CLI) | payer MEDICAID, SELFPAY ==
[2025-02-05 17:01] LABS: Absolute Lymphocyte Count 2.21 X10^3/uL (0.83-4.51); Absolute Neutrophil Count 7.9 X10^3/uL (2.0-7.7); Basophil# 0.05 X10^3/uL; Basophil% 0.5 % (0-1); Eosinophil# 0.02 X10^3/uL; Eosinophils% 0.2 % (0-5); Hematocrit 38.4 % (37-47); Hemoglobin 12.7 g/dL (12.0-15.0); Lymphocyte # 2.21 X10^3/ul (0.83-4.51); Lymphocyte % 20.6 % (19-41); Mean Corp Hgb Conc 33.1 g/dL (32-36); Mean Corpuscular Hgb 33.3 pg (27.0-32.0); Mean Corpuscular Volume 100.8 fL (81-99); Mean Platelet Vol. 9.4 fl (6.2-12.0); Monocyte# 0.46 X10^3/uL; Monocyte% 4.3 % (0-10); NRBC Flagged by Analyzer 0 % (0-5); Neutrophil # 7.92 X10^3/uL (2.7-7.7); Neutrophil % 73.8 % (47-70); Platelet Count 393 K/mm3 (150-450); RBC Distribution Width CV 12.9 % (11.6-14.6); RBC Distribution Width SD 47.5 fl (35.1-43.9); Red Blood Count 3.81 M/mm3 (4.2-5.4); White Blood Count 10.7 K/mm3 (4.4-11.0)
[2025-02-05 18:33] LABS: Glucose Challenge Gest 1H 50g 93 mg/dL (70-140); HIV Nonreactive (Nonreactive); Syphilis Antibodies Nonreactive (Nonreactive)
== END | disposition home or self-care (01) ==
PROVIDERS: Obstetrics & Gynecology; Referring Provider Nurse Practitioner Women's Health; Visit Provider Nurse Practitioner Women's Health
DX: O09.92 Supervision of high risk pregnancy, unspecified, second trimester (principal); Z3A.00 Weeks of gestation of pregnancy not specified; Z13.1 Encounter for screening for diabetes mellitus
CPT/HCPCS: 36415; 82950; 85025; 86703; 86780; 87491; 87591

== ENCOUNTER 2025-03-04 18:10 | Outpatient (CLI) | payer MEDICAID, SELFPAY ==
[2025-03-04] VITALS (13 sets, daily range): BP systolic 137–160; BP diastolic 68–83; PULSE 58–90; RESP 13; TEMP 36.7; O2SAT 88–100
[2025-03-04] MEDS: Ondansetron 4 MG/2 ML Vial IV (20:13)
[2025-03-04] MEDS: Lactated Ringers 1,000 ML 999 ML IV (20:16)
[2025-03-04] MEDS: Famotidine 200 MG/20 ML MDV 20 MG in 0.9% Normal Saline (Pres. free 8 ML 300 MG IV (20:17)
[2025-03-04 20:28] LABS: Absolute Lymphocyte Count 2.55 X10^3/uL (0.83-4.51); Absolute Neutrophil Count 13.4 X10^3/uL (2.0-7.7); Basophil# 0.05 X10^3/uL; Basophil% 0.3 % (0-1); Eosinophil# 0.44 X10^3/uL; Eosinophils% 2.5 % (0-5); Hematocrit 36.8 % (37-47); Hemoglobin 12.7 g/dL (12.0-15.0); Lymphocyte # 2.55 X10^3/ul (0.83-4.51); Lymphocyte % 14.6 % (19-41); Mean Corp Hgb Conc 34.5 g/dL (32-36); Mean Corpuscular Volume 95.6 fL (81-99); Mean Platelet Vol. 9.3 fl (6.2-12.0); Monocyte# 0.89 X10^3/uL; Monocyte% 5.1 % (0-10); NRBC Flagged by Analyzer 0 % (0-5); Neutrophil # 13.36 X10^3/uL (2.7-7.7); Neutrophil % 76.5 % (47-70); Platelet Count 422 K/mm3 (150-450); RBC Distribution Width SD 44.9 fl (35.1-43.9); Red Blood Count 3.85 M/mm3 (4.2-5.4); White Blood Count 17.5 K/mm3 (4.4-11.0)
[2025-03-04 20:58] LABS: ALB/GLOB Ratio 1.5 RATIO (0.9-2.4); AST(SGOT) 18 U/L (<=31); Alanine Aminotransfer ALT/SGPT 13 U/L (<=34); Albumin, Serum 4.3 g/dL (3.5-5.0); Alkaline Phosphatase 96 U/L (35-104); Anion Gap 18 (5-15); BUN 7 mg/dL (4-19); BUN/Creat Ratio 10.3 RATIO (10-20); Calcium,Total 8.8 mg/dL (7.6-11.0); Carbon Dioxide 18.9 mmol/L (21.0-32.0); Chloride 103 mmol/L (98-108); Creatinine, Serum 0.72 mg/dL (0.70-1.20); EST Glomerular Filtration Rate 118 (>60); Globulin 2.8 g/dL (2.2-4.2); Glucose 106 mg/dL (70-99); Potassium 2.8 mmol/L (3.3-5.1); Protein, Total 7.1 g/dL (5.9-8.4); Sodium Level 140 mmol/L (133-145); Total Bilirubin 0.31 mg/dL (0.00-1.30)
[2025-03-04 21:46] LABS: Amphetamine Urine NEGATIVE (<1000 ng/mL); Barbiturate Urine NEGATIVE (< 200 ng/mL); Benzodiazepine Urine NEGATIVE (< 200 ng/mL); Buprenorphine Urine NEGATIVE (< 200 ng/mL); Cocaine Urine NEGATIVE (< 300 ng/mL); Fentanyl, Urine NEGATIVE; Methadone Urine NEGATIVE (< 300 ng/mL); Opiates Urine NEGATIVE (< 300 ng/mL); Oxycodone, Urine NEGATIVE (< 100 ng/mL); PCP Urine NEGATIVE (< 25 ng/mL); THC Urine PRESUMPTIVE POSITIVE (< 50 ng/mL)
[2025-03-04 21:52] LABS: Mucous, Urine 0 SEEN /hpf (<or=2+)
[2025-03-04 21:53] LABS: Color, Urine Yellow (Yellow); Glucose, Dipstick Normal (Normal); Leukocyte Esterase-Dipstick 100 /ul (Negative); Nitrite-Dipstick Negative (Negative); Occult Blood-Urine Negative /ul (Negative); Protein-Dipstick 30 mg/dl (Negative); Urine Bilirubin Dipstick Negative (Negative); Urine Clarity Clear (Clear); Urine Urobilinogen Normal (Normal); Urine pH 6.5 (5.0 - 8.0)
[2025-03-04] MEDS: Potassium Chloride Oral Tablet 20 MEQ PO (21:56)
[2025-03-04 22:20] LABS: Ketone-Dipstick 150 mg/dl (Negative)
[2025-03-04 22:23] LABS: Squamous Epithelial Cells - UA 10-25 SEEN /hpf (5-10); White Blood Cells 5-10 SEEN /hpf (0-5)
[2025-03-04 22:24] LABS: Bacteria 1+ /hpf (None Seen)
[2025-03-04 22:25] LABS: Red Blood Cells-Urine 0-5 SEEN /hpf (0-5)
--- NOTE | 2025-03-04 22:39 | NURSING ---
Pt has been educated why provider strongly recommends overnight monitoring, the benefits of staying and on the risks of leaving AMA. Pt verbalizes understanding and states she would still like to leave for personal reasons and because she lives far away. Pt signed AMA papers and provider was updated.
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
== END 2025-03-04 23:05 | disposition home or self-care (01) ==
LOC: WPOUT 18:16 → WP 18:16
PROVIDERS: Visit Provider Advanced Practice Midwife
DX: O23.43 Unspecified infection of urinary tract in pregnancy, third trimester (principal); O36.8330 Maternal care for abnormalities of the fetal heart rate or rhythm, third trimester, not applicable or unspecified; Z3A.29 29 weeks gestation of pregnancy; R63.6 Underweight; O26.893 Other specified pregnancy related conditions, third trimester; F12.90 Cannabis use, unspecified, uncomplicated; Z87.891 Personal history of nicotine dependence; Z53.29 Procedure and treatment not carried out because of patient's decision for other reasons
CPT/HCPCS: 96365; 96366; 96375; 36415; 59050; 80053; 80307; 81001; 85025; 87086; 99221; G0378; J2405

== ENCOUNTER → 2025-04-01 | Outpatient (CLI) | payer MEDICAID, SELFPAY | END | disposition home or self-care (01) | LOC: LABSPEC 14:56 | PROVIDERS: Referring Provider Nurse Practitioner Women's Health; Visit Provider Nurse Practitioner Women's Health | DX: R30.0 Dysuria (principal) | CPT/HCPCS: 87086; 87088 ==